=== PATIENT | female | born 1945 | race African-American/Black ===

== ENCOUNTER 2016-09-17 12:51 | Emergency (ER) | payer MEDICARE, MEDICAID ==
[~2016-09-17] VITALS: Ht 165.1 cm; Wt 90.7 kg
[~2016-09-17 12:51] MED LIST: ACETAMINOPHEN325 M1 ORAL; AMLODIPINE BESY10 MG ORAL; ARANESP10 MCG/0.4 IVP; ARTANE2 MG ORAL; ASCORBIC ACID500 MG ORAL; ATARAX25 MG ORAL; ATIVAN0.5 MG ORAL; ATIVAN1 MG GT; ATIVAN1 MG ORAL; AUGMENTIN 500M500 MG ORAL; CALCIUM ACETAT667 M1 PO; CALCIUM ACETAT667 MG PO; CATAPRES0.1 MG ORAL; CIPROFLOXACIN1 EACH RIGHT EYE; COZAAR50 MG ORAL; DEXTROSE 50%-WA50 ML IV; DIFLUCAN100 MG ORAL; DOXYCYCLINE MO100 MG ORAL; DSS100 MG ORAL; DULCOLAX10 MG RC; ENALAPRIL MALEA20 MG ORAL; ENALAPRIL1.25 MG/ML ORAL; FLUCONAZOLE100 MG GT; HALOPERIDOL0.5 MG ORAL; HEPARIN SO5000 UNIT2 SUBQ; HYDRALAZINE HCL50 MG PO; HYDROCODON-ACE1 EA15 ORAL; HYDROXYZINE HCL50 M1 PO; IMODIUM2 MG ORAL; IMODIUM2 MG/10 ML GT; LACTULOSE20 GM/301 ORAL; LEVEMIR100 UNIT/1 SUBQ; LIQUACEL LIQUID30 ML PO; LISINOPRIL20 MG ORAL; LORAZEPAM2 MG/1 M4 GT; MAGNESIUM CITR296 M1 PO; METOPROLOL SUCC50 MG ORAL; METOPROLOL TART50 MG ORAL; MIRALAX17 G2 ORAL; MIRTAZAPINE15 MG ORAL; MOM30 ML ORAL; MYLANTA30 M1 GT; MYLANTA30 M1 PO; NEPHROVITE1 TAB GT; NEPHROVITE1 TAB ORAL; NEPTAZANE50 MG ORAL; NOVOLOG100 UNIT/3 SUBQ; NUEDEXTA 20-101 EAC1 GT; PLAVIX75 MG ORAL; PRED FORTE1 ML OP; PROTEIN975 MG PO; QUETIAPINE FUMA25 MG ORAL; REGLAN10 MG PO; RENA-VITE TABL0.8 M1 PO; RISPERDAL2 MG ORAL; ROBITUSSIN DM5 ML GT; SALINE 10ML FLU10 ML IVF; SEROQUEL100 MG ORAL; SIMVASTATIN40 MG ORAL; TOBRAMYCIN-DEXAM5 M1 RIGHT EYE; TRAMADOL HCL50 MG ORAL; TRUSOPT10 ML BOTH EYES; VENOFER50 MG/2.5 IV; ZOFRAN4 MG ORAL; ZOLPIDEM TARTRAT5 MG ORAL; [UNRECOGNIZED DRUG - OTHER] PO
[2016-09-17 13:00] VITALS: BP 134/74
[2016-09-17] MEDS ORDERED: Lidocaine 1% MPF 10mg/ml 5ml INJ ONE (13:30)
[2016-09-17 14:59] LABS: BASOPHILS % (AUTO) 1.3 % (0.0-2.0); LYMPHOCYTES % (AUTO) 34.4 % (20.0-45.0); MEAN CORPUSCULAR HEMOGLOBIN 30.8 PG (27.0-31.0); MEAN CORPUSCULAR HGB CONC 31.6 G/DL (32.0-36.0); MEAN CORPUSCULAR VOLUME 97 FL (80-99); MEAN PLATELET VOLUME 5.7 FL (6.5-10.1); MONOCYTES % (AUTO) 8.3 % (1.0-10.0); PLATELET COUNT 151 K/UL (150-450); RED BLOOD COUNT 4.03 M/UL (4.20-5.40); RED CELL DISTRIBUTION WIDTH 15.8 % (11.6-14.8); WHITE BLOOD COUNT 5.7 K/UL (4.8-10.8)
[2016-09-17 15:00] VITALS: BP 117/65
[2016-09-17 15:33] LABS: ALBUMIN/GLOBULIN RATIO 1.3 (1.0-2.7); CALCIUM 9.1 mg/dL (8.6-10.2); CREATININE 8.1 mg/dL (0.5-0.9); GLOMERULAR FILTRATION RATE 5.9 mL/min (>60); POTASSIUM 4.2 mEQ/L (3.4-4.9); TOTAL PROTEIN 7.1 g/dL (6.6-8.7)
--- NOTE | 2016-09-17 15:38 | Emergency Room Report ---
History of Present Illness General Chief Complaint: Skin Rash/Abscess Source: Patient, Medical Record, EMS Present Illness HPI Patient is sent for an abscess on her mons pubis. Patient denies any fevers. She has some mild pain there but not severe. Reports 8/10, sharp aching, not radiating. Denies NVD, dysuia. No fevers. The patient is a history of diabetes. Hard of hearing and blind. Dialysis. Shunt L upper arm. Post stroke. States tetanus UTD. Allergies: Coded Allergies: LABETALOL (Unverified Allergy, Mild, RASH, 04/01/14) LATEX, NATURAL RUBBER (Unverified Allergy, Mild, RASH, 04/01/14) MORPHINE (Unverified Allergy, Mild, RASH, 04/01/14) Patient History Past Medical History: see triage record Past Surgical History: other - shunt Social History Narrative SNF Reviewed Nursing Documentation: PMH: Agreed, PSxH: Agreed Nursing Documentation-PMH Past Medical History: No History, Except For Hx Cardiac Problems: Yes Hx Hypertension: Yes Hx Diabetes: Yes Hx Cancer: No Hx Gastrointestinal Problems: No Hx Dialysis: Yes - ESRD MWF Hx Neurological Problems: Yes Hx Cerebrovascular Accident: Yes Hx Dementia: Yes Hx Speech Problem: Yes Hx Dysphasia: Yes Hx Weakness: Yes - General Body Weakness Review of Systems All Other Systems: negative except mentioned in HPI Physical Exam Vital Signs Date Time Temp Pulse Resp B/P Pulse Ox O2 Delivery O2 Flow Rate FiO2 09/17/16 12:53 60 20 131/67 100 Room Air 09/17/16 13:00 98.3 Sp02 EP Interpretation: reviewed, normal General Appearance: no apparent distress, GCS 15, Chronically Ill Head: normocephalic Eyes: bilateral eye normal inspection, bilateral eye other - blind ENT: moist mucus membranes Neck: supple Respiratory: lungs clear, normal breath sounds Cardiovascular #1: regular rate, rhythm, other - shunt L upper arm Cardiovascular #2: 2+ radial (R) Gastrointestinal: normal inspection, normal bowel sounds, non tender, no mass, non-distended, overweight Genitourinary: other - abscess mons pubis Musculoskeletal: back normal, gait/station normal, normal range of motion Neurologic: alert, oriented x3, other - decreased hearing, LE weakness Psychiatric: mood/affect normal Skin: normal inspection, warm/dry, other - abscess mons pubis, no erythema Procedures Incision and Drainage Incision and Drainage : Consent: Verbal Blade Size: 11 I & D Procedure: betadine prep, sterile drapes applied, sterile dressing applied, gauze wick placed Wound Location: other - mons pubis Anesthesia: Lidocaine w/ Epi Splint Applied?: No Patient Tolerated: Well Complications: None Medical Decision Making Diagnostic Impression: Primary Impression: Abscess Additional Impression: ESRD (end stage renal disease) on dialysis ER Course Patient with abscess mons pubis. Ddx cellulitis, abscess. Needs I and D. With co-morbidies, needs labs. Patient non-toxic and declines pain medicine. I and D performed. Tolerated well. Antibiotics ordered. Discussed with Dr Buck. Patient stable for outpatient observation and treatment. Laboratory Tests Test 09/17/16 14:47 White Blood Count 5.7 K/UL (4.8-10.8) Red Blood Count 4.03 M/UL (4.20-5.40) L Hemoglobin 12.4 G/DL (12.0-16.0) Hematocrit 39.3 % (37.0-47.0) Mean Corpuscular Volume 97 FL (80-99) Mean Corpuscular Hemoglobin 30.8 PG (27.0-31.0) Mean Corpuscular Hemoglobin Concent 31.6 G/DL (32.0-36.0) L Red Cell Distribution Width 15.8 % (11.6-14.8) H Platelet Count 151 K/UL (150-450) Mean Platelet Volume 5.7 FL (6.5-10.1) L Neutrophils (%) (Auto) 54.0 % (45.0-75.0) Lymphocytes (%) (Auto) 34.4 % (20.0-45.0) Monocytes (%) (Auto) 8.3 % (1.0-10.0) Eosinophils (%) (Auto) 2.0 % (0.0-3.0) Basophils (%) (Auto) 1.3 % (0.0-2.0) Sodium Level 131 mEQ/L (135-145) L Potassium Level 4.2 mEQ/L (3.4-4.9) Chloride Level 87 mEQ/L (98-107) L Carbon Dioxide Level 24 mEQ/L (20-30) Anion Gap 20 (5-15) H Blood Urea Nitrogen 50 mg/dL (7-23) H Creatinine 8.1 mg/dL (0.5-0.9) H Estimate Glomerular Filtration Rate 5.9 mL/min (>60) Glucose Level 200 mg/dL (74-106) H Lactic Acid Level 1.70 mmol/L (0.66-2.22) Calcium Level 9.1 mg/dL (8.6-10.2) Total Bilirubin 0.3 mg/dL (0.0-1.2) Aspartate Amino Transferase (AST) 16 U/L (5-40) Alanine Aminotransferase (ALT) 14 U/L (3-33) Alkaline Phosphatase 124 U/L (35-104) H Total Protein 7.1 g/dL (6.6-8.7) Albumin 4.1 g/dL (3.5-5.2) Globulin 3.0 g/dL Albumin/Globulin Ratio 1.3 (1.0-2.7) EKG Diagnostic Results Rate: normal Rhythm: NSR ST Segments: no acute changes Rhythm Strip Diag. Results EP Interpretation: yes Rhythm: NSR, no PVC's, no ectopy Last Vital Signs Date Time Temp Pulse Resp B/P Pulse Ox O2 Delivery O2 Flow Rate FiO2 09/17/16 16:51 64 13 128/74 99 Room Air 09/17/16 15:00 98.0 Status: improved Reevaluation Impression Called Zee Connell to decrease dose of Bactrim due to dialysis. Disposition: HOME, SELF-CARE Condition: Improved Scripts Bacitracin (Bacitracin) 28.4 Gm Oint...g. 1 APPLIC TOPIC BID, #10 GM Prov: John Wynn M.D. 09/17/16 Trimethoprim/Sulfamethoxazole 160/800* (BACTRIM DS TABLET*) 1 Each Tablet 1 TAB ORAL Q12H, #14 TAB 0 Refills Prov: John Wynn M.D. 09/17/16 Referrals: CARLO BUCK (PCP) John Wynn M.D. September 17, 2016 15:38
[2016-09-17] MEDS ORDERED: BACTRIM DS TAB1 EAC1 ORAL (16:04)
[2016-09-17] MEDS ORDERED: BACITRACIN15 GM TOPIC (16:04)
[2016-09-17] MEDS ORDERED: Bactrim DS (160mg/800mg) tab ORAL ONE (16:15)
[2016-09-17 16:51] VITALS: BP 128/74
--- NOTE | 2016-09-19 17:01 | Cardiology Report ---
APPROVED REPORT EKG Measurement Heart [id number] Normal sinus rhythm with sinus arrhythmia Left axis deviation Anterolateral infarct, age undetermined Abnormal ECG
[2016-09-23] MEDS ORDERED: LEVAQUIN250 M1 ORAL (19:43)
== END 2016-09-17 16:56 | disposition home or self-care (01) ==
LOC: EDBD 12:51 → EMR 13:20
DX: L02.215 Cutaneous abscess of perineum (principal); I12.0 Hypertensive chronic kidney disease with stage 5 chronic kidney disease or end stage renal disease; N18.6 End stage renal disease; Z99.2 Dependence on renal dialysis; E11.9 Type 2 diabetes mellitus without complications; Z86.73 Personal history of transient ischemic attack (TIA), and cerebral infarction without residual deficits; F03.90 Unspecified dementia, unspecified severity, without behavioral disturbance, psychotic disturbance, mood disturbance, and anxiety; Z88.6 Allergy status to analgesic agent; Z88.8 Allergy status to other drugs, medicaments and biological substances; Z91.040 Latex allergy status
CPT/HCPCS: 10060; 36415; 80053; 83605; 85025; 87070; 87181; 87205; 93005

== ENCOUNTER 2016-12-03 15:26 | Inpatient (IN) | payer MEDICARE, MEDICAID ==
[~2016-12-03] VITALS: Ht 167.6 cm; Wt 120.2 kg
[~2016-12-03 15:26] MED LIST changes: +BACITRACIN15 GM TOPIC; +BACTRIM DS TAB1 EAC1 ORAL; +LEVAQUIN250 M1 ORAL
[2016-12-03 15:36] VITALS: BP 158/60
[2016-12-03] MEDS ORDERED: Ketorolac 30mg Inj IV ONE (16:00)
[2016-12-03 16:30] VITALS: BP 147/54
[2016-12-03 16:39] LABS: BASOPHILS % (AUTO) 1.1 % (0.0-2.0); EOSINOPHILS % (AUTO) 1.5 % (0.0-3.0); LYMPHOCYTES % (AUTO) 40.8 % (20.0-45.0); MEAN CORPUSCULAR HEMOGLOBIN 33.4 PG (27.0-31.0); MEAN CORPUSCULAR HGB CONC 35.8 G/DL (32.0-36.0); MEAN CORPUSCULAR VOLUME 93 FL (80-99); MEAN PLATELET VOLUME 8.2 FL (6.5-10.1); MONOCYTES % (AUTO) 5.5 % (1.0-10.0); NEUTROPHILS % (AUTO) 51.2 % (45.0-75.0); PLATELET COUNT 234 K/UL (150-450); RED BLOOD COUNT 4.22 M/UL (4.20-5.40); RED CELL DISTRIBUTION WIDTH 13.5 % (11.6-14.8); WHITE BLOOD COUNT 7.6 K/UL (4.8-10.8)
[2016-12-03 17:14] LABS: BASOPHILS % (AUTO) 2.2 % (0.0-2.0); EOSINOPHILS % (AUTO) 2.4 % (0.0-3.0); LYMPHOCYTES % (AUTO) 20.8 % (20.0-45.0); MEAN CORPUSCULAR HEMOGLOBIN 34.3 PG (27.0-31.0); MEAN CORPUSCULAR HGB CONC 33.9 G/DL (32.0-36.0); MEAN CORPUSCULAR VOLUME 101 FL (80-99); MEAN PLATELET VOLUME 5.1 FL (6.5-10.1); MONOCYTES % (AUTO) 7.7 % (1.0-10.0); PLATELET COUNT 216 K/UL (150-450); RED BLOOD COUNT 2.95 M/UL (4.20-5.40); RED CELL DISTRIBUTION WIDTH 15.3 % (11.6-14.8); WHITE BLOOD COUNT 6.7 K/UL (4.8-10.8)
[2016-12-03 17:17] LABS: APPEARANCE,URINE TURBID; KETONES,URINE NEGATIVE (NEGATIVE); LEUKOCYTE ESTERASE ,URINE 3+ (NEGATIVE); NITRITE,URINE NEGATIVE (NEGATIVE); PH,URINE 6 (4.5-8.0); PROTEIN,URINE 3+ (NEGATIVE); UROBILINOGEN,URINE NORMAL MG/DL (0.0-1.0)
[2016-12-03 17:26] LABS: BACTERIA,URINE MANY /HPF; RBC,URINE 0-2 /HPF (0 - 2); SQUAMOUS EPITHELIAL CELL,UR OCCASIONAL /LPF (NONE/OCC); WBC,URINE TNTC /HPF (0 - 2)
[2016-12-03 17:30] VITALS: BP 142/59
[2016-12-03] MEDS ORDERED: cefTRIAXone 1 GM in NS 55 ML IVPB ONE (17:30)
[2016-12-03 17:45] LABS: ALBUMIN/GLOBULIN RATIO 1.6 (1.0-2.7); CALCIUM 8.9 mg/dL (8.6-10.2); CREATININE 6.5 mg/dL (0.5-0.9); GLOMERULAR FILTRATION RATE 7.6 mL/min (>60); POTASSIUM 3.7 mEQ/L (3.4-4.9)
[2016-12-03 18:30] VITALS: BP 158/88
--- NOTE | 2016-12-03 18:51 | Emergency Room Report ---
History of Present Illness General Chief Complaint: Abdominal Pain Source: Patient, Family Member, EMS Present Illness HPI [id number] with constipation "for long time." Taking laxative, finally having BM right now in ED HD patient, history of DM Denies chest pain, SOB C/o left sided abd pain Denies urinary complaints Allergies: Coded Allergies: LABETALOL (Unverified Allergy, Mild, RASH, 04/01/14) LATEX, NATURAL RUBBER (Unverified Allergy, Mild, RASH, 04/01/14) MORPHINE (Unverified Allergy, Mild, RASH, 04/01/14) LATEX (Unverified Allergy, Unknown, 12/03/16) Patient History Past Surgical History: other - SBO Pertinent Family History: none Social History: Denies: alcohol use, drug use, smoking Now: No Immunizations: UTD Reviewed Nursing Documentation: PMH: Agreed, PSxH: Agreed Nursing Documentation-PMH Past Medical History: No History, Except For Hx Cardiac Problems: Yes Hx Hypertension: Yes Hx Pacemaker: No - ANEMIA Hx Diabetes: Yes Hx Cancer: No Hx Gastrointestinal Problems: No - OBESITY Hx Dialysis: Yes - [facility] History Of Psychiatric Problem: Yes - DEPRESSION Hx Neurological Problems: No - BLIND Hx Cerebrovascular Accident: Yes Hx Dementia: Yes Hx Speech Problem: Yes Hx Dysphasia: Yes Hx Weakness: Yes - General Body Weakness Review of Systems All Other Systems: negative except mentioned in HPI Physical Exam Vital Signs Date Time Temp Pulse Resp B/P Pulse Ox O2 Delivery O2 Flow Rate FiO2 12/03/16 15:14 70 16 158/60 95 Room Air 12/03/16 15:36 97.9 Sp02 EP Interpretation: reviewed, normal General Appearance: normal inspection, well appearing, no apparent distress, alert, GCS 15, non-toxic, obese Head: normocephalic, atraumatic Eyes: bilateral eye EOMI, bilateral eye PERRL ENT: normal ENT inspection, hearing grossly normal, normal voice Neck: normal inspection, full range of motion, supple, no bony tend Respiratory: normal inspection, lungs clear, normal breath sounds, no respiratory distress, no retraction, no wheezing Cardiovascular #1: regular rate, rhythm, no edema Gastrointestinal: normal inspection, normal bowel sounds, soft, no guarding, no hernia, other - left sided abd ttp Genitourinary: no CVA tenderness Musculoskeletal: normal inspection, back normal, normal range of motion, Amber' s Sign negative Neurologic: normal inspection, alert, oriented x3, responsive, cook roast III-XII nml as tested, motor strength/tone normal, speech normal Psychiatric: normal inspection, judgement/insight normal, mood/affect normal Skin: normal inspection, normal color, no rash Medical Decision Making Medicare Attestation I Kelsi Barrett MD hereby attest that the medical record entry for date of service, 12/03/16 accurately reflects signatures/notations that I made in my capacity as MD when I treated/diagnosed the above listed Medicare beneficiary. I attest that this information is true, accurate and complete to the best of my knowledge. I understand that any falsification, omission, or concealment of material fact may subject me to administrative, civil, or criminal liability. This patient warrants hospital admission for extreme of age and has a condition that cannot be treated as outpatient. Diagnostic Impression: Primary Impression: Abdominal pain Qualified Codes: R10.32 - Left lower quadrant pain Additional Impressions: Constipation Qualified Codes: K59.00 - Constipation, unspecified UTI (urinary tract infection) Qualified Codes: N30.01 - Acute cystitis with hematuria ER Course UTI: Abx given CTAP: Bilateral pleural effusions vs PNA. Abx for UTI will cover. Cystitis, gall stones. Afebrile. No leuks Elevated serumCr. K normal Endorsed to Dr Montague covering for D [facility] 756pm EKG Diagnostic Results Rate: normal Rhythm: NSR ST Segments: no acute changes ASA given to the pt in ED: No Rhythm Strip Diag. Results EP Interpretation: yes Rate: 69 Rhythm: NSR, no PVC's, no ectopy Last Vital Signs Date Time Temp Pulse Resp B/P Pulse Ox O2 Delivery O2 Flow Rate FiO2 12/03/16 18:30 69 20 158/88 93 Room Air 12/03/16 15:36 97.9 Status: improved Disposition: ADMITTED INPATIENT Condition: Serious KELSI BARRETT M.D. Dec 03, 2016 18:51
[2016-12-03 19:30] VITALS: BP 160/82
[2016-12-03] MEDS ORDERED: Milk of Magnesia 30ml Ud ORAL PRN (21:00)
[2016-12-03 21:30] VITALS: BP_SYST 144; BP_SYST 168; BP_DIAS 81; BP_DIAS 87
[2016-12-03] MEDS ORDERED: Piperacillin/Tazobactam 3.375 GM in NS 110 ML IVPB SCH (22:00)
[2016-12-03] MEDS: Docusate 100mg cap ORAL SCH (23:00)
[2016-12-04] VITALS: BP 148/50
[2016-12-04] MEDS ORDERED: Zosyn 2.25gm inj ONE (02:03)
[2016-12-04] MEDS: Zosyn 2.25 gm in D5W 55ml IV SCH ×3 (02:10→17:32)
[2016-12-04 04:00] VITALS: BP 139/70
[2016-12-04] MEDS: NovoLOG Insulin Flexpen SUBQ SCH ×4 (06:20→21:41)
--- NOTE | 2016-12-04 08:45 | Diagnostic Imaging Report ---
Indication: Abdominal pain Technique: Spiral acquisitions obtained through the abdomen and pelvis. Patient given contrast through gastrostomy. No IV contrast utilized, due to renal insufficiency.. Multiplanar reconstructions were generated. Total dose length product and 65 mGycm. CTDIvol(s) 19 mGy. Dose reduction achieved using automated exposure control Comparison: 01/07/2013 Findings: There is marked thickening of the wall of the rectum and distal sigmoid. There is also wall thickening of the ascending colon and equivocally of the terminal ileum. The appendix is not definitely identified, but there are no findings to suggest acute appendicitis. No evidence of diverticulosis or diverticulitis. No small bowel distention. No small bowel wall thickening. No free or loculated intraperitoneal fluid is demonstrated. The subcutaneous fat is diffusely mildly edematous. There is a gastrostomy in good position. The distal esophagus, stomach, duodenum are unremarkable. There is mild generalized edema of the subcutaneous fat Lack of IV contrast limits assessment of the solid organs. The gallbladder demonstrates equivocal small gallstones layering dependently. The liver demonstrates a granulomatous calcification. The bile ducts pancreas, spleen, are unremarkable. The left kidney demonstrates an upper pole high attenuation lesion, attenuation which is just below the threshold for diagnosis of a hyperdense cyst. This is not evident previously. There is a left interpolar region subcentimeter low-attenuation lesion too small to characterize, likely present previously. Again demonstrated is an interpolar region calyceal calculus on the left. The right kidney is unremarkable. Uterus and adnexal structures are unremarkable. No pelvic mass or adenopathy. There are bilateral moderate to large pleural effusions and resulting in compressive atelectasis at both lung bases. The heart is mildly enlarged. There is a small pericardial effusion The bones are unremarkable except for degenerative changes of the lumbosacral junction. Impression: Marked rectal and sigmoid wall thickening, consistent with proctitis/colitis, nonspecific as regards etiology. There is also wall thickening of the ascending colon and equivocally of the terminal ileum Large large bilateral pleural effusions. Resultant bilateral basilar pulmonary parenchymal compressive atelectasis Left renal upper pole high attenuation lesion, likely but not definitively a proteinaceous cyst; solid mass less likely but not excludable. Recommend further evaluation with ultrasound Nonobstructive left renal calculus Cardiomegaly. Small pericardial effusion Gastrostomy in good position Mild diffuse edema of the subcutaneous fat Equivocal cholelithiasis Other findings as noted, including spondylosis, granulomatous calcification within the liver This agrees with the preliminary interpretation provided overnight by Dr. Pruitt The CT scanner at [facility] is accredited by the [employer] and the scans are performed using protocols designed to limit radiation exposure to as low as reasonably achievable to attain images of sufficient resolution adequate for diagnostic evaluation.
[2016-12-04 08:56] VITALS: BP 148/69
[2016-12-04] MEDS: Metoprolol Succinate XL 50mg tab ORAL SCH (09:19)
[2016-12-04] MEDS: Aspirin Baby 81mg ORAL SCH (09:19)
[2016-12-04] MEDS: Docusate 100mg cap ORAL SCH ×2 (09:19→21:39)
[2016-12-04] MEDS: Dorzolamide 2% Btl BOTH EYES SCH ×3 (09:22→16:43)
[2016-12-04 12:56] VITALS: BP 142/73
[2016-12-04] MEDS ORDERED: Heparin Sod 1000 units/ml 10ml IV SCH (14:30)
[2016-12-04 16:04] VITALS: BP 141/66
--- NOTE | 2016-12-04 16:48 | Cardiology Report ---
APPROVED REPORT EKG Measurement Heart [id number] Normal sinus rhythm Cannot rule out Anterior infarct, age undetermined Abnormal ECG
--- NOTE | 2016-12-04 17:15 | History and Physical Report ---
DATE OF ADMISSION: 12/03/2016 CHIEF COMPLAINT AND REASON FOR HOSPITALIZATION: The patient is admitted for evaluation of abdominal pain. HISTORY OF PRESENT ILLNESS: The patient is a 71-year-old lady, who lives in the intermediate facility and receives outpatient dialysis. She is the patient of Dr. Banegas and I am covering him, who is on vacation. She apparently was complaining of abdominal pain in the ECF. She has a gastrostomy tube, apparently not using. She had dysphagia in the past, but subsequently they are feeding a solid diet. There has been some constipation recently. She was found to have pyuria in the emergency room. PAST MEDICAL HISTORY: As per transfer records, which in brief include end-stage renal disease, dysphagia, diabetes type 2, obesity, arthrosclerotic heart disease, cardiomegaly, history of thrombectomy, left arm AV fistula, history of coronary angioplasty, hypertension, anemia, paranoid schizophrenia, blindness secondary to glaucoma and diabetic retinopathy, and hearing impairment. MEDICATIONS: Prior to admission medications include the following: Diflucan 200 mg q.48 hours for seven days starting 11/19/2016, Norvasc, ascorbic acid, Plavix, dorzolamide eye drops, lactulose, metoprolol, MiraLAX, sevelamer, sliding-scale insulin, p.r.n. Zofran, Mylanta, and mirtazapine 7.5 mg at bedtime. ALLERGIES: Listed include labetalol, morphine, natural rubber, and latex. HABITS: She is a nondrinker and nonsmoker. SYSTEM REVIEW: HEENT: The patient is blind. She also is hearing impaired. ENDOCRINE: History of obesity and diabetes. No known thyroid disease. PULMONARY: Occasional shortness of breath. None known. No asthma or TB. CARDIAC: Denies angina or myocardial infarction, but there is a history on the transfer record of some coronary disease. GASTROINTESTINAL: See history of present illness. There is no rectal bleeding or definite ulcer. GENITOURINARY: She has some mild dysuria. She makes small amounts of urine. NEUROLOGIC: Denied CVA or seizures. PHYSICAL EXAMINATION: GENERAL: The patient is alert, obese lady, in no acute distress. VITAL SIGNS: Temperature 96.9 degrees, pulse 70, respirations 20, and blood pressure 148/69. HEENT: The patient is blind. There is ptosis of the right eyelid. Ocular motion is intact in all directions. NECK: No adenopathy. LUNGS: Clear. HEART: Regular rhythm. No murmur. ABDOMEN: Obese and soft. I am unable to feel liver or spleen. There is no localized tenderness. Gastrostomy tube is in place. EXTREMITIES: No edema, cyanosis, or clubbing. There is a left upper arm AV fistula with a good thrill. NEUROLOGIC: She is alert and responsive. She is blind. Ocular motion intact in all directions. Smile is symmetric. She moves all extremities. LABORATORY DATA: Review of pertinent labs, white count 6.7 and hemoglobin 10.1. Sodium 131, potassium 3.7, BUN 32, creatinine 6.5, and glucose 183. Liver enzymes are normal. The urine shows too numerous to count white cells per high-power field. IMAGING: She had a CT abdomen and pelvis, which is reported as showing mild diffuse edema and subcutaneous fat, large bilateral pleural effusions, and atelectasis. Gastrostomy in good position. Marked rectal and sigmoid wall thickening consistent with proctitis or colitis, nonspecific. IMPRESSION: 1. Urinary tract infection. 2. Possible colitis. 3. Gastrostomy in place, but the patient wishes to have this removed. 4. End-stage renal disease. 5. Morbid obesity. 6. Blind. 7. Hearing impairment. 8. Schizophrenia. PLAN: The patient will be given comfort measures, start on antibiotics for the urinary tract infection, and we will get GI opinion regarding removal of the gastrostomy. Nadir Montague M.D. DR: ÁNGELA JOB#: [id number] CC:
[2016-12-04 20:00] VITALS: BP 141/76
[2016-12-04] MEDS ORDERED: Miralax 17gm pkt ORAL SCH (21:00)
[2016-12-05] VITALS (7 sets, daily range): BP systolic 130–162; BP diastolic 58–80
[2016-12-05] MEDS: Zosyn 2.25 gm in D5W 55ml IV SCH ×3 (02:00→17:22)
[2016-12-05] MEDS: NovoLOG Insulin Flexpen SUBQ SCH ×3 (05:54→16:30)
[2016-12-05] MEDS: Dorzolamide 2% Btl BOTH EYES SCH ×3 (08:55→18:26)
[2016-12-05] MEDS: Metoprolol Succinate XL 50mg tab ORAL SCH (08:55)
[2016-12-05] MEDS: Aspirin Baby 81mg ORAL SCH (08:56)
[2016-12-05] MEDS: Docusate 100mg cap ORAL SCH (08:56)
[2016-12-05] MEDS ORDERED: FLUCONAZOLE100 MG ORAL (17:28)
[2016-12-05] MEDS ORDERED: Fluconazole 100mg tab ORAL SCH (18:30)
[2016-12-05] MEDS ORDERED: NS 275ml ONE (20:39)
[2016-12-05] MEDS ORDERED: Tubing IV Secondary IV ONE (20:39)
--- NOTE | 2016-12-06 07:30 | Discharge Summary ---
DATE OF ADMISSION: 12/03/2016 DATE OF DISCHARGE: 12/05/2016 PERTINENT HISTORY: The patient is a 71-year-old lady who lives in a care home facility and receives dialysis. She is blind and has a gastrostomy tube. She presents with abdominal pain. She had dysphagia in the past and was subsequently able to eat solid foods. PERTINENT PHYSICAL FINDINGS: GENERAL: The patient is alert, blind. VITAL SIGNS: Normal. LUNGS: Clear. HEART: Regular rhythm. ABDOMEN: Obese and soft. I am unable to feel liver or spleen. There is no localized tenderness. Gastrostomy tube in place. EXTREMITIES: No edema. There is a left upper arm AV fistula. COURSE IN THE HOSPITAL: The patient had pyuria and was started on empiric antibiotics. She had some evidence of constipation and was given laxatives. CT abdomen and pelvis was done in the emergency room. Findings are noted, which include bilateral effusions, atelectasis, and left upper pole renal proteinaceous cyst, nonobstructive left renal calculus, small pericardial effusion, diffuse edema, subcutaneous fat, equivocal cholelithiasis, and granulomatous calcifications within the liver. The patient had a nontender abdomen and diet was resumed. She wants her gastrostomy removed and this was done by Dr. Luo without complications. She felt better and was discharged back to the ECF. The urine culture showed yeast and she was given Diflucan. FINAL DIAGNOSES: 1. Abdominal pain, multifactorial, likely secondary to irritation of gastrostomy tube and constipation. 2. Urinary yeast infection 3. End-stage renal disease. 4. Blind. 5. Constipation. 6. Schizophrenia. 7. Pleural effusions. 8. Morbid obesity. DISCHARGE DISPOSITION: She is discharged to the ECF on a renal diet. DISCHARGE MEDICATIONS: Per the discharge medication list. FOLLOWUP: Follow up by Dr. Banegas. Nadir Montague M.D. DR: JULIAN JOB#: [id number] CC:
--- NOTE | 2016-12-07 03:33 | Consultation ---
DATE OF CONSULTATION: 12/05/2016 NOTE: POOR AUDIO QUALITY GASTROLOGY CONSULTATION CONSULTING PHYSICIAN: Elvira Luo M.D. CHIEF COMPLAINT: I was asked to see this patient by Dr. Nadir Montague for gastrostomy tube removal and nutritional evaluation. HISTORY OF PRESENT ILLNESS: The patient is a pleasant 71-year-old woman with multiple medical problems , who comes in with abdominal pain. The patient has had a gastrostomy tube for several years, but she is not using it. She had some degree of dysphagia in the past, but it has been a long time since the problem has been there. The patient is tolerating 100% of her oral diet by mouth and she is taking medications by mouth as well. The patient was found to have a urinary tract infection in the emergency room and was admitted for 23-hour observation. This request was made to remove the gastrostomy tube. PAST MEDICAL HISTORY: History of end-stage renal disease, dysphagia, diabetes type 2, obesity, atherosclerotic heart disease, cardiomegaly, history of thrombectomy, history of left arm AV fistula, history of coronary angioplasty, hypertension, anemia, paranoid schizophrenia, blindness secondary to glaucoma and diabetic retinopathy, hearing impaired. MEDICATIONS: See chart list for details. ALLERGIES: Labetalol, morphine, natural rubber, and latex. SOCIAL HISTORY: The patient is a prison resident and has had no recent history of smoking or drinking. FAMILY HISTORY: Noncontributory. REVIEW OF SYSTEMS: Otherwise negative. PHYSICAL EXAMINATION: GENERAL: A pleasant, obese woman, seen in her room. HEENT: Normocephalic and atraumatic. Sclerae were anicteric, but the patient had scarred eyes. NECK: Supple. CHEST: Clear to auscultation. CARDIOVASCULAR: Revealed regular rate. ABDOMEN: Soft with good bowel sounds. Gastrostomy tube is in good position, but appeared to be old and unused. It was removed using traction and pressure was applied to stop bleeding, which is minor. EXTREMITIES: Revealed some edema AV fistula placement site. LABORATORY DATA: Laboratory data were noted. ASSESSMENT: This patient is obese and has had a gastrostomy tube long time ago, which was not being used. She oral diet and there is no foreseeable need in the future for this catheter and therefore was removed at bedside today. The patient receive steroids wound care including over the next two days and so there are more problems. She can be given clear liquid diet tonight and then restart the regular renal diet in the morning. RECOMMENDATIONS: Per above discussion and per orders written in the chart. Thank you for asking me to participate in the care of this patient. Elvira Luo M.D. DR: TRACEY JOB#: [id number] CC:
== END 2016-12-05 20:40 | DRG 391 ==
LOC: EDBD 15:26 → EMR 19:46 → 4W 19:48 → EDBEDREQ 21:51 → 4W 12-04 18:38
PROC: 5A1D00Z (ICD-10-PCS; principal; 2016-12-04)
PROC: 0DP6XUZ Removal of Feeding Device from Stomach, External Approach (ICD-10-PCS; 2016-12-05)
DX: R10.9 Unspecified abdominal pain (principal); J18.9 Pneumonia, unspecified organism; E11.22 Type 2 diabetes mellitus with diabetic chronic kidney disease; N18.6 End stage renal disease; I12.0 Hypertensive chronic kidney disease with stage 5 chronic kidney disease or end stage renal disease; Z68.41 Body mass index [BMI] 40.0-44.9, adult; K94.29 Other complications of gastrostomy; B37.49 Other urogenital candidiasis; F20.0 Paranoid schizophrenia; I25.10 Atherosclerotic heart disease of native coronary artery without angina pectoris; H91.90 Unspecified hearing loss, unspecified ear; Z88.6 Allergy status to analgesic agent; Z88.8 Allergy status to other drugs, medicaments and biological substances; Z79.02 Long term (current) use of antithrombotics/antiplatelets; E11.319 Type 2 diabetes mellitus with unspecified diabetic retinopathy without macular edema; H40.9 Unspecified glaucoma; Z79.4 Long term (current) use of insulin; H54.0 Blindness, both eyes; Y83.3 Surgical operation with formation of external stoma as the cause of abnormal reaction of the patient, or of later complication, without mention of misadventure at the time of the procedure; K59.00 Constipation, unspecified; E66.01 Morbid (severe) obesity due to excess calories
CPT/HCPCS: 36415; 74176; 80053; 81003; 82962; 83690; 85025; 86705; 86709; 86803; 87081; 87086; 87340; 93005; J1815; J2405